=== PATIENT | male | born 1975 | race Two or more races ===

== ENCOUNTER 2022-01-12 18:37 | Emergency (ER) | payer OTHER ==
[~2022-01-12] VITALS: Ht 180.3 cm; Wt 167.8 kg
[2022-01-12] MEDS ORDERED: NORFLEX100MG PO (19:58)
[2022-01-12] MEDS ORDERED: DICLOFENAC SODI75 MG PO (19:58)
== END 2022-01-12 20:22 | disposition home or self-care (01) ==
LOC: ER 18:37
DX: M54.50 Low back pain, unspecified (principal); E11.9 Type 2 diabetes mellitus without complications; I10 Essential (primary) hypertension